=== PATIENT | male | born 1930 | race Caucasian/White ===

== ENCOUNTER 2019-01-31 11:51 | Outpatient (CLI) | payer MEDICARE, BC ==
--- NOTE | 2019-01-31 14:44 | PET ---
EXAM: PET/CT HISTORY: Stage IV liver cancer; stomach cancer versus pancreatic primary with liver metastatic disease TECHNIQUE: PET scanning with CT attenuation correction was performed from the base of the brain to the proximal thighs following the intravenous administration of 12.3 millicuries [id number]. COMPARISON: None FINDINGS: Biodistribution:The biodistribution for the exam appears acceptable. Head and neck: There is appropriate background activity within the brain. No hypermetabolic lymphaden opathy or masses identified. Thorax: There are scattered areas of tree-in-bud nodularity seen throughout both lungs but predominan tly involving the lower lobes and right upper lobe. There is scattered emphysema. There are scattered calcified granuloma. There are scattered vascular calcifications involving the coronary art eries and thoracic aorta. There are calcified lymph nodes within the mediastinum. No hypermetabolic pulmonary nodule, lymph node or pleural effusion is identified. Abdomen and pelvis: There is expected background activity within the GI and systems.There are prom inent hypermetabolic masses within the liver consistent with patient's history of metastatic disease. The largest lesion is seen within the right hepatic lobe measuring 8.7 cm with a peak SUV ac tivity of 7.64 and a mean activity of 7.1. There is an ill-defined approximately 1.7 cm hypermetabolic mass in the pancreatic head with a peak activity of 11.12 and a mean activity of 9.08. There is dilatation of the main pancreatic duct. There is a mild to moderate ascites. There is some mildly hypermetabolic activity seen within the peritoneal fluid with a peak activity of 2.5 and a mean activity of 1.66. No hypermetabolic peritoneal studding is present. Osseous structures and skin: No hypermetabolic skin or osseous lesion is identified. IMPRESSION: Abnormal PET/CT 1. There is a hypermetabolic, ill-defined mass within the pancreatic head inducing obstructive physio logy to the main pancreatic duct suspicious for pancreatic malignancy. 2. Numerous hypermetabolic lesions involving the liver consistent with hepatic metastatic disease. 3. Mild to moderate ascites with mild hypermetabolic activity seen within the fluid is suspicious for malignant ascites. Recommend consideration for diagnostic paracentesis to evaluate fluid by cytology. 4. Scattered areas of tree-in-bud nodularity involving the lungs are suspicious for bronchiolitis. Re commend a CT follow-up in 6-8 weeks to document stability or resolution. Metastatic disease cannot be excluded. These are below PET resolution threshold due to their size.
== END 2019-01-31 11:52 | disposition home or self-care (01) ==
LOC: PET 11:51
PROVIDERS: ATTEND Internal Medicine Hematology & Oncology
DX: C16.9 Malignant neoplasm of stomach, unspecified (principal); K86.89 Other specified diseases of pancreas; K76.9 Liver disease, unspecified; R18.8 Other ascites; R91.8 Other nonspecific abnormal finding of lung field
CPT/HCPCS: 78815; A9552